=== PATIENT | male | born 1960 | race Caucasian/White ===

== ENCOUNTER 2020-07-25 00:37 | Inpatient (IN) ==
[2020-07-25 02:05] LABS: ABS Eosinophils 0.1 10^3/ul (0-0.6); ABS Monocytes 0.8 10^3/ul (0-0.8); ABS Neutrophils 5.5 10^3/ul (1.5-7.7); Eosinophil % 1.2 %; Hematocrit 41 % (42-52); Hemoglobin 14.5 g/dL (14.0-18.0); Lymphocyte % 23.8 %; Mean Corpuscular HGB Conc 35 g/dL (31-36); Mean Corpuscular Hemoglobin 32 pg (27-31); Mean Corpuscular Volume 91 fL (80-94); Mean Platelet Volume 7.8 fL (7.4-10.4); Platelet Count 246 10^3/uL (150-450); Red Blood Count 4.56 10^6 /uL (4.18-5.48); Red Cell Distribution Width 13 % (10-15); White Blood Count 8.4 10^3/uL (3.5-10.8)
[2020-07-25 02:21] LABS: ALT 54 U/L (7-52); AST 34 U/L (13-39); Albumin 4.4 g/dL (3.2-5.2); Albumin/Globulin Ratio 1.8 (1-3); Alkaline Phosphatase 58 U/L (34-104); Anion Gap 5 mmol/L (2-11); BUN/Creatinine Ratio 16.8 (8-20); Blood Urea Nitrogen 17 mg/dL (6-24); CO2 Carbon Dioxide 30 mmol/L (22-32); Calcium 9.1 mg/dL (8.6-10.3); Chloride 99 mmol/L (101-111); EGFR African American 91.5 (>60); EGFR Non-African American 75.6 (>60); Globulin 2.5 g/dL (2-4); Glucose 145 mg/dL (70-100); Potassium 3.9 mmol/L (3.5-5.0); Sodium 134 mmol/L (135-145); Total Protein 6.9 g/dL (6.4-8.9)
[2020-07-25 02:28] LABS: Troponin I 0.03 ng/mL (<0.03)
[2020-07-25 05:12] LABS: Troponin I 0.08 ng/mL (<0.03)
[2020-07-25] MEDS ORDERED: Heparin DRIP 25,000 UNITS BAG 25,000 UNITS/500 ML BAG IV SCH (05:30)
[2020-07-25] MEDS ORDERED: Isosorbide Mononit ER 30mg TAB PO ONE (05:58)
[2020-07-25 07:03] LABS: EGFR African American 101.9 (>60); EGFR Non-African American 84.2 (>60)
[2020-07-25] MEDS: Heparin 5000 UNITS/ML 1 mL VIAL IV SCH ×2 (07:54→15:08)
[2020-07-25 08:36] LABS: Cholesterol 193 mg/dL; HDL Cholesterol 38.8 mg/dL; LDL Cholesterol 127 mg/dL; Triglycerides 134 mg/dL
[2020-07-25 08:43] LABS: Troponin I 0.55 ng/mL (<0.03)
[2020-07-25] MEDS: Mometasone/Formoter 100/5 MDI INH SCH ×2 (08:49→20:30)
[2020-07-25] MEDS ORDERED: Nitro Patch/OINT Remove PATCH TOPICAL SCH (10:00)
[2020-07-25] MEDS: Nitro 2% OINT (Nitroglycerin) 1 INCH/PAK TOPICAL SCH ×2 (10:28→16:41)
[2020-07-25 11:11] LABS: Troponin I 1.63 ng/mL (<0.03)
[2020-07-25] MEDS: NS 0.9% 1000 ml BAG 1,000 ML IV SCH ×2 (11:32→19:45)
[2020-07-25] MEDS ORDERED: Lactated Ringers 1000 ml BAG 1,000 ML IV ONE (14:11)
[2020-07-25] MEDS ORDERED: Midazolam 5 mg/5 ml VIAL 1 mg/ml 5 ml VIAL (5 mg) ONE (16:30)
[2020-07-25] MEDS ORDERED: VERAPAMIL 2.5 MG/ML 2 ML VIAL ** 5 mg/2 ml ONE (16:30)
[2020-07-25] MEDS ORDERED: Heparin 1,000 UNIT/ML 10 ml (10,000 UNITS) CATHLAB/DIALYSIS ONE (16:30)
[2020-07-25] MEDS ORDERED: Iohexol 350 (CONTRAST) 200 ML MDV IV ONE ×2 (16:31→16:32)
[2020-07-25] MEDS ORDERED: Heparin 2 UNITS/ML 1000 mls 2,000 ML IV ONE (16:31)
[2020-07-25] MEDS ORDERED: nitroGLYCERIN DRIP 25,000 MCG/250 ML BTL ONE (16:31)
[2020-07-25] MEDS ORDERED: Lidocaine 1% VIAL 10 MG/ML VIAL ONE (16:31)
[2020-07-25] MEDS ORDERED: HYDROmorphone 1 MG/1 ML SYRINGE ONE (16:32)
[2020-07-25] MEDS ORDERED: diPHENhydraMINE IV 50 MG/ML 1 ml VIAL (BENADRYL) ONE (16:32)
[2020-07-25] MEDS ORDERED: Bivalirudin 250 MG VIAL ONE ×3 (17:38→17:57)
[2020-07-25] MEDS ORDERED: Adenosine 3 MG/ML 2 ml VIAL (6 mg) ONE (17:45)
[2020-07-25] MEDS ORDERED: NS 0.9% 1000 ml BAG 1,000 ML IV SCH (18:30)
[2020-07-25] MEDS ORDERED: Bivalirudin 250 MG in NS 0.9% 50 ML 50 ML IV SCH (19:00)
[2020-07-25 20:00] LABS: Troponin I 8.34 ng/mL (<0.03)
[2020-07-25] MEDS ORDERED: Nitro Patch/OINT Remove PATCH PATCH OFF ONE (23:00)
[2020-07-26 00:51] LABS: Troponin I 12.24 ng/mL (<0.03)
[2020-07-26 06:08] LABS: Hematocrit 37 % (42-52); Hemoglobin 12.9 g/dL (14.0-18.0); Mean Corpuscular HGB Conc 35 g/dL (31-36); Mean Corpuscular Hemoglobin 31 pg (27-31); Mean Corpuscular Volume 90 fL (80-94); Mean Platelet Volume 7.5 fL (7.4-10.4); Platelet Count 230 10^3/uL (150-450); Red Blood Count 4.12 10^6 /uL (4.18-5.48); Red Cell Distribution Width 13 % (10-15); White Blood Count 12.2 10^3/uL (3.5-10.8)
[2020-07-26 06:20] LABS: INR 1.1 (0.82-1.09)
[2020-07-26 06:30] LABS: ALT 50 U/L (7-52); AST 71 U/L (13-39); Albumin 3.9 g/dL (3.2-5.2); Albumin/Globulin Ratio 1.4 (1-3); Alkaline Phosphatase 54 U/L (34-104); Anion Gap 6 mmol/L (2-11); BUN/Creatinine Ratio 13.9 (8-20); Blood Urea Nitrogen 14 mg/dL (6-24); CO2 Carbon Dioxide 23 mmol/L (22-32); Calcium 8.7 mg/dL (8.6-10.3); Chloride 103 mmol/L (101-111); EGFR African American 91.5 (>60); EGFR Non-African American 75.6 (>60); Globulin 2.7 g/dL (2-4); Glucose 123 mg/dL (70-100); Magnesium 1.9 mg/dL (1.9-2.7); Phosphorus 2.7 mg/dL (2.5-5.0); Sodium 132 mmol/L (135-145); Total Protein 6.6 g/dL (6.4-8.9)
[2020-07-26 06:36] LABS: Troponin I 9.08 ng/mL (<0.03)
[2020-07-26] MEDS: Mometasone/Formoter 100/5 MDI INH SCH (08:44)
[2020-07-26] MEDS ORDERED: Perflutren Lipid Microsphere 3 ML VIAL ONE (09:52)
[2020-07-26 11:07] VITALS: BP 168/101
[2020-07-26] MEDS ORDERED: Heparin 5000 UNITS/ML 1 mL VIAL SUBCUT SCH (14:00)
== END 2020-07-26 13:15 | disposition home or self-care (01) | DRG 174 ==
LOC: ED 00:37 → MEDTELE 06:21 → ICU 18:18
PROVIDERS: ADMIT Internal Medicine Interventional Cardiology; ATTEND Internal Medicine